=== PATIENT | female | born 1990 | race Caucasian/White ===

== ENCOUNTER 2016-08-12 21:24 | Emergency (ER) | payer OTHER ==
[~2016-08-12 21:24] MED LIST: ACETAMINOPHEN; ALBUTEROL17 GM INH; AMOXICILLIN PO; AUGMENTIN PO; BACITRACIN1 GM OINT EXT; BENADRYL IV; BENADRYL25 M3 PO; BENADRYL25 MG PO; BENTYL20 M1 PO; BENZONATATE PO; BIRTH CONTROL PILL PO; CIPRO PO; CLARITIN10 M3 PO; CLOTRIMAZOLE CREAM; DOXYCYCLINE150 MG PO; FAMOTIDINE PO; FLAGYL PO; FLUCONAZOLE150 MG PO; GUAIFEN-P-EPHE480 ML PO; IBUPROFEN PO; IBUPROFEN800 MG PO; KEPPRA500 MG PO; KETOPROFEN PO; LAMISIL AF DEFE30 GM TOP; MACROBID100 MG PO; MEDROL PO; MOTRIN PO; NAPROXEN PO; NO MEDICATIONS; NORCO 10-325 TA1 TAB PO; PHENERGAN12.5 MG PO; PREDNISONE PO; PRENATAL VITAMI1 TA3 PO; PRENATAL1 TA1; PRENATAL1 TA1 PO; PYRIDIUM100 MG PO; RONDEC DROPS30 ML PO; TYLENOL #3 PO; VICODIN 5/500 T1 TAB PO; VOLTAREN75 MG PO; ZOFRAN PO
[2016-08-12] MEDS ORDERED: INDERAL40 MG DOB (21:32)
== END 2016-08-12 21:54 | disposition home or self-care (01) ==
LOC: SED 21:24
DX: H92.01 Otalgia, right ear (principal); J45.909 Unspecified asthma, uncomplicated; G40.909 Epilepsy, unspecified, not intractable, without status epilepticus; I10 Essential (primary) hypertension
CPT/HCPCS: 99283

== ENCOUNTER 2016-10-20 07:56 | Inpatient (IN) | payer OTHER ==
[~2016-10-20] VITALS: Ht 167.6 cm; Wt 101.6 kg
--- NOTE | ~2016-10-20 | CT71 ---
[facility] A Service of [facility] RADIOLOGY TEXT RESULTS PATIENT: NITESH MONTILLA LOCATION: [facility] 324-01 : [birth year] UNIT #: [id number] AGE: [address]: Rosanna Souza MD SEX: F ORDER DR: [id number] [facility] [address] [place], [place] [address] [id number] MR#: [id number] #: [id number] NAME: NITESH MONTILLA. : 1990 SEX: F STUDY DATE/TIME: 10/20/2016 19:54 UNIT: [address] ROOM: [facility] STUDY DESCRIPTION: CT Head Wo Contrast Attending Physician: Rosanna Souza M.D. Ordering Physician: Rosanna Souza M.D. Primary Care Physician: Rosanna Souza M.D. MEDICAL IMAGING REPORT This report is preliminary unless electronic signature is present EXAM Noncontrast CT head, 10/20/2016 HISTORY 25-year-old female syncopal episode today, pressure in head. History of migraine headaches. Headache today after syncopal episode. COMPARISON Noncontrast CT head, 09/19/[address] exam was performed with one or more of the following radiation dose reduction techniques: automatic exposure control, adjustment of mA and/or kV according to patient size, and iterative reconstruction. FINDINGS No acute intracranial hemorrhage, mass lesion, mass effect or midline shift. No CT evidence of acute or evolving infarct. Mild motion degradation. No displaced calvarial fracture. Major paranasal sinuses and mastoid air cells appear clear. IMPRESSION No acute intracranial findings. Dictated by... Betty Walker M.D. THIS IS AN ELECTRONICALLY VERIFIED REPORT Betty Walker M.D. at 10/21/2016 1:55 PM Joanne TD: 10/21/2016 10:43 JOB #: [id number] [facility] A Service [facility] RADIOLOGY TEXT RESULTS PATIENT: NITESH MONTILLA LOCATION: [facility] 324-01 : 90 UNIT #: [id number] AGE: [address]: Rosanna Souza MD SEX: F ORDER DR: MEDICAL IMAGING REPORT Page 1 of 1 COPY
--- NOTE | ~2016-10-20 | EKG ---
PATIENT: NITESH MONTILLA UNIT #: [id number] Ventricular Rate: 74 BPM Atrial Rate: 74 BPM P-R Interval: 168 ms QRS Duration: 78 ms Q-T Interval: 382 ms QTC Calculation(Bezet): 424 ms P [place]: 37 degrees Calculated R [place]: 27 degrees Calculated T [place]: 12 degrees Diagnosis Line: Normal sinus rhythm Diagnosis Line: Normal ECG Diagnosis Line: Diagnosis Line: Confirmed by EDENILSON CUELLAR MD ([id number]) on Diagnosis Line: 10/22/2016 4:43:00 PM INTERPRETING MD: SINAN
[~2016-10-20 07:56] MED LIST changes: +INDERAL40 MG DOB
[2016-10-20 18:04] LABS: HEMATOCRIT 35.1 % (35.0-45.0); HEMOGLOBIN 11.4 gm/dL (12.0-16.0); MEAN CELL VOLUME 75.7 FL (83-96); MEAN CORPUSCULAR HEMOGLOBIN 24.5 PG (28-34); MEAN CORPUSCULAR HGB CONC 32.4 g/dL (30-36); MEAN PLATELET VOLUME 8.4 FL (6.5-11.5); RED BLOOD COUNT 4.64 X10e (3.90-5.30); WHITE BLOOD COUNT 8.1 X10e3 (4.0-10.5)
[2016-10-20 18:25] LABS: ALBUMIN SERUM 4.2 g/dL (3.5-5.0); BILIRUBIN,TOTAL 0.8 mg/dL (0.2-2.0); CREATININE SERUM 0.8 mg/dL (0.6-1.4); GLOM FILT RATE Estimated 102.6 mL/min (>60); POTASSIUM 3.7 mmol/L (3.5-5.1); PROTEIN TOTAL SERUM 7.4 g/dL (6.0-8.3)
[2016-10-20 21:02] LABS: URINE APPEARANCE CLEAR; URINE BILIRUBIN NEG (NEG); URINE BLOOD NEG (NEG); URINE COLOR YELLOW; URINE GLUCOSE NEG (NEG); URINE KETONE NEG (NEG); URINE LEUKOCYTE ESTERASE NEG (NEG); URINE NITRATE NEG (NEG); URINE PROTEIN NEG (NEG); URINE SPECIFIC GRAVITY 1.023 (1.003-1.035)
[2016-10-20 21:31] LABS: AMPHETAMINE NEG (NEG); BARBITURATES NEG (NEG); BENZODIAZEPINES NEG (NEG); COCAINE NEG (NEG); MARIJUANA NEG (NEG); OPIATES NEG (NEG); TRICYCLIC ANTIDEPRESSANTS NEG (NEG); U METHADONE NEG (NEG)
== END 2016-10-20 22:10 | disposition left against medical advice (07) | DRG 312 ==
LOC: C3A PCU 17:03
PROVIDERS: Physician Assistant Medical
DX: R55 Syncope and collapse (principal); I10 Essential (primary) hypertension
CPT/HCPCS: 70450; 80053; 80307; 81003; 82550; 82947; 84443; 84484; 84703; 85027; 87086; 93005; J1650